=== PATIENT | male | born 1985 | race Caucasian/White ===

== ENCOUNTER 2023-03-14 19:34 | Emergency (ER) | payer OTHER ==
[2023-03-14 19:55] VITALS: BP 133/83; PULSE 113; RESP 19; TEMP 99.1; BMI 24.4
== END 2023-03-14 20:40 | disposition home or self-care (01) ==
LOC: FER 19:34
DX: R21 Rash and other nonspecific skin eruption (principal); L81.7 Pigmented purpuric dermatosis
CPT/HCPCS: 99283-25